=== PATIENT | male | born 1985 | race Caucasian/White ===

== ENCOUNTER 2016-12-23 08:01 | Emergency (ER) | payer OTHER ==
[2016-12-23 08:09] VITALS: BP 142/86; PULSE 76; RESP 18; TEMP 97.6; O2SAT 100; BMI 28.5
--- NOTE | 2016-12-23 08:30 | C.PDOC ---
History Of Present Illness 31 yr old male presents to the ER with complaints of runny nose, congestion, exacerbated chronic back pain, generalized myalgia and abdominal pain since last night. Patient denies fever, chest pain, SOB, cough, nausea, vomiting, diarrhea, headache, weakness or numbness. Prior records were reviewed which showed patient has multiple prior visits for various complaints of pain. RUNNY NOSE, CONGESTION, EXAC CHRONIC BACL PAIN, GEN MYALGIA, ABD PAIN SINCE LAST NIGHT. NO FEVER. NO COUGH. MULT PRIOR ER VISITS FOR VARIOUS PAIN COMPLAINTS. EXAM NEG Time Seen by Provider: 12/23/16 08:15 Chief Complaint (Nursing): Back Pain History Per: Patient History/Exam Limitations: no limitations Onset/Duration Of Symptoms: Sudden Onset (last night) Current Symptoms Are (Timing): Still Present Sick Contacts (Context): None Past Medical History Reviewed: Historical Data, Nursing Documentation, Vital Signs Vital Signs: Last Vital Signs Temp 97.6 F 12/23/16 08:07 Pulse 76 12/23/16 08:07 Resp 18 12/23/16 08:07 BP 142/86 12/23/16 08:07 Pulse Ox 100 12/23/16 08:38 - Medical History PMH: Diverticulitis, Gall Bladder Disease, Pneumonia, Seizures Surgical History: Appendectomy - [facility] Procedures EXCISION OF DESCENDING COLON, ENDO, DIAGN (01/02/16) INJECT/INFUSE NEC (07/01/15) LAPAROSCOP APPENDECTOMY (06/17/15) Family History: States: No Known Family Hx - Social History Hx Tobacco Use: No Hx Alcohol Use: No Hx Substance Use: No - Immunization History Hx Tetanus Toxoid Vaccination: No Hx Influenza Vaccination: Yes Hx Pneumococcal Vaccination: Yes Review Of Systems Except As Marked, All Systems Reviewed And Found Negative. Constitutional: Positive for: Other ((+) Generalized myalgia ). Negative for: Fever ENT: Positive for: Nose Congestion Cardiovascular: Negative for: Chest Pain Respiratory: Negative for: Cough, Shortness of Breath Gastrointestinal: Positive for: Abdominal Pain. Negative for: Nausea, Vomiting , Diarrhea Musculoskeletal: Positive for: Back Pain (exacerbated chronic back pain ) Neurological: Negative for: Weakness, Numbness, Headache Physical Exam - Physical Exam Appears: Non-toxic, No Acute Distress Skin: Warm, Dry, No Rash Head: Atraumatic, Normacephalic Ear(s): Bilateral: Normal Nose: Normal Throat: Normal, No Erythema, No Exudate, No Drooling Neck: Normal, Normal ROM, Supple Chest: Symmetrical, No Tenderness Cardiovascular: Rhythm Regular, No Murmur Respiratory: Normal Breath Sounds, No Rales, No Rhonchi, No Wheezing Gastrointestinal/Abdominal: Normal Exam, Soft, No Tenderness, No Guarding, No Rebound, No Hernia Back: Normal Inspection, No CVA Tenderness Extremity: Normal ROM, No Swelling Neurological/Psych: Oriented x3, Normal Speech, Normal Motor ED Course And Treatment O2 Sat by Pulse Oximetry: 100 Progress - Re-Evaluation Re-evaluation Note: 12/23/16 08:27 [facility] REVIEWED 11/21/2016 TRAMADOL HCL 50 MG TABLET 60.0 10/16/2016 ACETAMINOPHEN-COD #4 TABLET 75.0 07/25/2016 TRAMADOL HCL 50 MG TABLET 30 07/20/2016 07/19/2016 ACETAMINOPHEN-COD #3 TABLET 12 06/21/2016 TRAMADOL HCL 50 MG TABLET 30 12/23/16 08:30 PS FINISHED TRAMADOL RX FROM 11/21, "I WAS TAKING 6 PILLS A DAY AND I RAN OUT". PT ADVISED TO FU PAIN MGMT, OTC COLD RX - Data Reviewed Data Reviewed: Old records - Continuity of Care Discussed patient case with:: Patient Medical Decision Making Medical Decision Making: PLAN: * Sudafed Tab PO * Tylenol PO Disposition Counseled Patient/Family Regarding: Diagnosis, Need For Followup - Disposition Referrals: YOUR,PMD [Other] Disposition: HOME/ ROUTINE Disposition Time: 08:31 Condition: GOOD Prescriptions: Phenylephrine/Dm/Acetaminop/GG [Sudafed PE Pressure+Pain+Cold 325 mg-10 mg-10] 1 tab PO Q6 PRN #20 tab PRN Reason: Sinus Symptoms Instructions: Upper Respiratory Infection (ED), Chronic Pain (ED) - Clinical Impression Clinical Impression: URI (upper respiratory infection), Exacerbation of chronic back pain, Myalgia - Scribe Statement The provider has reviewed the documentation as recorded by the Osito Falcon Provider Attestation: All medical record entries made by the Osito were at my direction and personally dictated by me. I have reviewed the chart and agree that the record accurately reflects my personal performance of the history, physical exam, medical decision making, and the department course for this patient. I have also personally directed, reviewed, and agree with the discharge instructions and disposition.
[2016-12-23] MEDS ORDERED: Acetaminophen-Codeine 300/30 mg Tab PO STA (08:34)
[2016-12-23] MEDS ORDERED: Acetaminophen-Codeine 300/30 mg Tab PO ONE (08:40)
== END 2016-12-23 08:58 | disposition home or self-care (01) ==
LOC: C.ER 08:01
DX: J06.9 Acute upper respiratory infection, unspecified (principal); G89.29 Other chronic pain; M54.9 Dorsalgia, unspecified; M79.1 Myalgia

== ENCOUNTER 2017-06-14 17:50 | Emergency (ER) | payer OTHER ==
[2017-06-14 17:50] VITALS: BMI 28.3
[2017-06-14] MEDS ORDERED: Albuterol-Ipratrop 3 mg / 0.5 (3 ml) UD IH STA (18:28)
--- NOTE | 2017-06-14 18:30 | C.PDOC ---
Time Seen by Provider: 06/14/17 18:21 Chief Complaint (Nursing): Cough, Cold, Congestion Past Medical History Vital Signs: Last Vital Signs Temp 98.5 F 06/14/17 18:02 Pulse 100 H 06/14/17 18:02 Resp 16 06/14/17 18:02 BP 130/86 06/14/17 18:02 Pulse Ox 100 06/14/17 18:02 - Medical History PMH: Diverticulitis, Gall Bladder Disease, Pneumonia, Seizures Denies: HTN, Chronic Kidney Disease Surgical History: Appendectomy - [facility] Procedures EXCISION OF DESCENDING COLON, ENDO, DIAGN (01/02/16) INJECT/INFUSE NEC (07/01/15) LAPAROSCOP APPENDECTOMY (06/17/15) Family History: States: Unknown Family Hx - Social History Hx Tobacco Use: No Hx Alcohol Use: No Hx Substance Use: No - Immunization History Hx Tetanus Toxoid Vaccination: No Hx Influenza Vaccination: No Hx Pneumococcal Vaccination: No ED Course And Treatment O2 Sat by Pulse Oximetry: 100 Disposition - Disposition Forms: [employer] - [facility] (Maori)
--- NOTE | 2017-06-14 18:31 | C.PDOC ---
History Of Present Illness 06/14/2017 18:25 A 31 year old male, whose past medical history includes seizures, presents to the emergency department complaining of cough, nasal congestion, and associated chest pain since earlier this morning. Patient reports this began with cough, then later began producing sputum with blood and mucus, as well as sore throat. He mentions his throat feels strained from coughing and becomes difficult to talk or breath after cough. Patient notes experiencing fever and runny nose, but denies of any other complaints. PMD: Dr. Ferrer Time Seen by Provider: 06/14/17 18:21 Chief Complaint (Nursing): Cough, Cold, Congestion History Per: Patient History/Exam Limitations: no limitations Onset/Duration Of Symptoms: Gradual, Other (began earlier this morning) Current Symptoms Are (Timing): Still Present Location Of Pain: Throat Associated Symptoms: Fever, Sore Throat, Cough, Sputum (mucus with blood), Nasal Congestion Past Medical History Reviewed: Historical Data, Nursing Documentation, Vital Signs Vital Signs: Last Vital Signs Temp 98.5 F 06/14/17 18:02 Pulse 100 H 06/14/17 18:02 Resp 16 06/14/17 18:02 BP 130/86 06/14/17 18:02 Pulse Ox 100 06/14/17 18:41 - Medical History PMH: Diverticulitis, Gall Bladder Disease, Pneumonia, Seizures Denies: HTN, Chronic Kidney Disease Surgical History: Appendectomy - [facility] Procedures EXCISION OF DESCENDING COLON, ENDO, DIAGN (01/02/16) INJECT/INFUSE NEC (07/01/15) LAPAROSCOP APPENDECTOMY (06/17/15) Family History: States: Unknown Family Hx - Social History Hx Tobacco Use: No Hx Alcohol Use: No Hx Substance Use: No - Immunization History Hx Tetanus Toxoid Vaccination: No Hx Influenza Vaccination: No Hx Pneumococcal Vaccination: No Review Of Systems Except As Marked, All Systems Reviewed And Found Negative. Constitutional: Positive for: Fever ENT: Positive for: Nose Discharge (runny nose), Nose Congestion, Other (sore throat strained from coughing) Cardiovascular: Positive for: Chest Pain (associated with cough) Respiratory: Positive for: Cough, Sputum (mucus with blood; patient states mucus is "lightish green"). Negative for: Shortness of Breath Physical Exam - Physical Exam Appears: Well, No Acute Distress Skin: Normal Color, Warm, Dry Eye(s): bilateral: Normal Inspection, PERRL, EOMI Nose: Normal (nasal congestion), Other Throat: Erythema Neck: Normal Cardiovascular: Rhythm Regular Respiratory: Normal Breath Sounds Gastrointestinal/Abdominal: Normal Exam Back: Normal Inspection Extremity: Normal ROM ED Course And Treatment O2 Sat by Pulse Oximetry: 100 (room air) Pulse Ox Interpretation: Normal Medical Decision Making Medical Decision Makin06/14/2017 18:28 Impression: 31 year old male with cough, chest pain, nasal congestion, and sore throat. Physical exam shows erythema of throat; clear lungs, regular heart rate. Plan: -- Chest X-ray -- Tylenol -- Albuterol/Ipratropium -- Nebulizer treatment -- Reassess and disposition Prior Visits: Notes and results from previous visits were reviewed. On 12/23/2016 patient came in complaining of runny nose, congestion, exacerbated chronic back pain, generalized myalgia, and abdominal pain. Patient was discharged home. Disposition Counseled Patient/Family Regarding: Studies Performed, Diagnosis, Need For Followup, Rx Given - Disposition Referrals: Ravin Ferrer MD [Staff Provider] - Disposition: HOME/ ROUTINE Disposition Time: 18:32 Condition: IMPROVED Additional Instructions: Mr. Jones, thank you for letting us take care of you today. Return to the ER if your symptoms worsen, or if any problems. Take the medication listed below as prescribed. Follow up with Dr. Ferrer next week for a re-evaluation. Prescriptions: Albuterol HFA [Ventolin HFA 90 mcg/actuation (8 g)] 2 puff IH [id number] PRN #1 inhaler PRN Reason: Cough Acetaminophen [Tylenol 325mg tab] 3 tab PO Q6 PRN #60 tab PRN Reason: Pain, Moderate (4-7) guaiFENesin [guaifENESIN] 2 tsp PO Q4 PRN #4 oz PRN Reason: Cough Loratadine [Claritin] 1 tab PO DAILY #15 tab Instructions: Upper Respiratory Infection (ED), Viral Syndrome (ED) Forms: [employer] (Somali) Print Language: ROMANIAN - Clinical Impression Clinical Impression: URI (upper respiratory infection), Viral syndrome - Scribe Statement The provider has reviewed the documentation as recorded by the Scribe 06/14/2017 Scribe Attestation: Hanan Dabdi MD Scribe Attestation: All medical record entries made by the Scribe were at my direction and personally dictated by me. I have reviewed the chart and agree that the record accurately reflects my personal performance of the history, physical exam, medical decision making, and the department course for this patient. I have also personally directed, reviewed, and agree with the discharge instructions and disposition.
[2017-06-14] MEDS ORDERED: Albuterol 0.083% Inhal Sol (2.5 mg/3 mL) UD ONE (18:34)
[2017-06-14] MEDS ORDERED: Ipratropium 0.02% Inhal Soln (0.5 mg/2.5 ml) UD IH ONE (18:35)
[2017-06-14 19:29] VITALS: BP 124/82; PULSE 94; RESP 20; TEMP 98.6; O2SAT 97
--- NOTE | 2017-06-15 12:15 | RAD ---
HISTORY: cough r/o pneumonia COMPARISON: 12/15/2013 TECHNIQUE: Chest PA and lateral FINDINGS: LUNGS: No active pulmonary disease. PLEURA: No significant pleural effusion identified. No pneumothorax apparent. CARDIOVASCULAR: Normal. OSSEOUS STRUCTURES: No significant abnormalities. VISUALIZED UPPER ABDOMEN: Normal. OTHER FINDINGS: None. IMPRESSION: No active disease.
== END 2017-06-14 19:00 | disposition home or self-care (01) ==
LOC: C.ER 17:50
DX: J06.9 Acute upper respiratory infection, unspecified (principal); B34.9 Viral infection, unspecified